=== PATIENT | female | born 1960 | race American Indian/Alaskan Native ===

== ENCOUNTER 2016-10-11 14:45 | Outpatient (CLI) | payer OTHER ==
--- NOTE | 2016-10-12 08:16 | Ultrasound Report ---
BILATERAL DIGITAL DIAGNOSTIC MAMMOGRAM with CAD and LEFT BREAST ULTRASOUND: 10/11/16 14:45:00 CLINICAL: Palpable left breast lump. COMPARISON:11/16/15 FINDINGS: The breasts are heterogeneously dense, which may obscured small masses. An oval left upper outer mass with a lobular margin measures 2.3 cm and correlates with the palpable lump. No architectural distortion or suspicious calcifications. Stable 1.4 cm right lower inner breast mass with a biopsy clip. Ultrasound of the left breast (including all four quadrants and the retroareolar area) was performed. A heterogeneous solid hypoechoic mass at 2 o'clock 13 cm from the nipple measures 2.8 x 2.2 x 1.6 cm and corresponds to the palpable mass on the mammogram. No other mass or cyst. Ultrasound of the left axilla demonstrated no suspicious lymph nodes. IMPRESSION: A highly suspicious 2.8 cm palpable left breast mass at 2 o'clock 13 cm from the nipple. BIRADS 5 - - Highly Suggestive of Malignancy RECOMMENDATION: Ultrasound guided needle core biopsy of the left breast. ACR BI-RADS MAMMOGRAPHIC CODES: 0 = Needs additional imaging evaluation; 1 = Negative; 2 = Benign; 3 = Probably benign; 4 = Suspicious; 5 = Malignant; 6 = Known biopsy-proven malignancy COMMENT: 1. Dense breast tissue, i.e., adenosis, fibrocystic changes, etc., may obscure an underlying neoplasm. 2. Approximately 10% of cancers are not detected with mammography. 3. A negative mammography report should not delay biopsy if a clinically suspicious mass is present. COMMENT: Patient follow-up letters are generated by our [employer] (FIG) application.
== END 2016-10-11 14:46 | disposition home or self-care (01) ==
LOC: SPVWC 14:45
PROVIDERS: ATTEND Family Medicine
DX: N63 Unspecified lump in breast (principal)
CPT/HCPCS: 76641; G0204; 77066

== ENCOUNTER 2016-10-24 14:02 | Outpatient (CLI) | payer OTHER ==
--- NOTE | 2016-10-24 15:11 | Mammography Report ---
LEFT DIGITAL DIAGNOSTIC MAMMOGRAM: 10/24/16 14:02:00 CLINICAL: For clip placement immediately status post ultrasound biopsy. COMPARISON:10/11/16 FINDINGS: A biopsy clip is now identified at the margin of the previously described upper outer mass. IMPRESSION: Concordant clip placement status post ultrasound biopsy. BI-RADS CATEGORY: 5 - - Highly Suggestive of Malignancy Pathology pending.
--- NOTE | 2016-10-24 15:13 | Ultrasound Report ---
ULTRASOUND GUIDED NEEDLE CORE BIOPSY LEFT BREAST WITH CLIP PLACEMENT: 10/24/16 CLINICAL: A 2.3 cm left breast mass at 2 o'clock 13 cm from the nipple. COMPARISON :10/11/16 FINDINGS: The procedure was explained to the patient and informed consent was obtained. Ultrasound demonstrated a mass at 2 o'clock 13 cm from the nipple. I marked the breast with a felt tip marker and a time out was called. The skin was prepped with Betadine and anesthetized with 1% lidocaine. Needle core biopsy was performed through a tiny dermatotomy using ultrasound guidance, 2% lidocaine with epinephrine for deep anesthesia and a 14-gauge Achieve biopsy device. 3 cores were obtained and placed in formalin. A clip was deployed within the mass. The patient tolerated the procedure well and there were no apparent complications. Hemostasis was achieved with minimal pressure and a sterile dressing was applied. A two view mammogram demonstrated satisfactory placement of the clip. She left the department in good condition and was given instructions for wound care and followup. IMPRESSION: Uncomplicated ultrasound guided needle core biopsy with clip placement left breast.
== END 2016-10-24 14:03 | disposition home or self-care (01) ==
LOC: SPVWC 14:02
PROVIDERS: ATTEND Family Medicine
DX: N63 Unspecified lump in breast (principal)
CPT/HCPCS: 19083; A4648; G0206; 88305; 88361

== ENCOUNTER 2016-12-24 12:20 | Outpatient (CLI) | payer OTHER ==
--- NOTE | 2016-12-25 14:43 | Magnetic Resonance Report ---
BILATERAL BREAST MRI WITHOUT AND WITH CONTRAST: 12/24/16 12:20:00 CLINICAL: Newly diagnosed left breast cancer. Status post left ultrasound-guided needle core breast biopsy 10/24/16 with pathologic diagnosis of invasive mammary carcinoma with mucinous features, [place] grade I/III (well-differentiated). COMPARISON:10/11/16 bilateral mammogram and left breast ultrasound.. TECHNIQUE: Axial 1.0-mm T1 without, axial high resolution 2.0-mm T2 and axial 1.0-mm dynamic Vibrant high-resolution postcontrast T1 fat saturation sequences on a 1.5 Dayanna magnet. The examination was performed with an 8 channel dedicated [place] breast coil. Post processing with CAD and subtraction was performed on an Scrip-t workstation. 20 cc of Multihance was injected without incident for the contrast portion of the exam. Consent was obtained prior to the administration of the contrast. FINDINGS: Right: Mild background parenchymal enhancement. No suspicious mass or suspicious enhancement. An oval benign mass at 3 o'clock 8.6 cm from the nipple with a mild lobular contour contains a biopsy clip and measures 16.8 x 10.2 x 9.4 mm. It demonstrates heterogeneous enhancement with mixed kinetics, 192% peak enhancement, 193% type I persistent and 0% type III washout. No suspicious right axillary or right internal mammary lymph nodes. Left: Mild background parenchymal enhancement. The known cancer is an oval irregular mass at 3 o'clock 13.6 cm from the nipple and 4.8 cm from the chest wall measuring 2.9 x 1.7 x 2.2 cm. It demonstrates heterogeneous enhancement with mixed kinetics, 222% peak enhancement and 50% type III washout. It is uniformly hyperintense on T2. No other mass or suspicious enhancement. A benign upper outer lymph node 8.1 cm from the nipple measures 7.0 mm and a benign upper lymph node at 12 o'clock 9.4 cm from the nipple measures 7 mm. No suspicious left axillary or left internal mammary lymph nodes. IMPRESSION: 1. Known 2.9 cm left breast cancer and no additional suspicious lesion of either breast. 2. No suspicious lymph nodes.3. Negative right breast. BI-RADS 6 -- Known Cancer LEFT BI-RADS --
== END 2016-12-24 12:21 | disposition home or self-care (01) ==
LOC: SPVIMAG 12:21
PROVIDERS: ATTEND Surgery
DX: C50.912 Malignant neoplasm of unspecified site of left female breast (principal); F17.200 Nicotine dependence, unspecified, uncomplicated; Z80.3 Family history of malignant neoplasm of breast
CPT/HCPCS: 0159T; A9577; C8908; 77059

== ENCOUNTER 2017-01-02 08:51 | Day surgery (SDC) | payer OTHER ==
[~2017-01-02 08:51] MED LIST: NACL 0.9% 1000 ML 1,000 ML IV SCH
[2017-01-02] MEDS ORDERED: PEPCID PO NR (09:00)
[2017-01-02] MEDS ORDERED: VERSED IV NR (09:29)
[2017-01-02] MEDS ORDERED: MORPHINE IV PRN (09:29)
--- NOTE | 2017-01-02 09:30 | Anesthesia Day of Surgery ---
Anesthesia Day of Surgery - Day of Surgery Patient Examined: Yes Patient H&P Reviewed: Yes Patient is NPO: Yes
--- NOTE | 2017-01-02 09:30 | Anesthesia Consultation ---
Anesthesia Consult and Med Hx Date of service: 01/02/17 - Airway Anesthetic Teeth Evaluation: Good, Chipped (front lower) ROM Head & Neck: Adequate Mental/Hyoid Distance: Adequate Mallampati Class: Class II Intubation Access Assessment: Probably Good - Pulmonary Exam CTA: Yes - Cardiac Exam Cardiac Exam: RRR - Pre-Operative Health Status ASA Pre-Surgery Classification: ASA2 Proposed Anesthetic Plan: General - Pulmonary Hx Smoking: Yes (1/2 PPD X 35 YRS) Hx Sleep Apnea: No (NORMAN PRE SCREEN HIGH RISK) - Cardiovascular System Hx Hypertension: No - Hematic Hx Anemia: Yes (NOT RECENT) - Other Systems Hx Cancer: Yes (left breast cancer) Hx Obesity: No
[2017-01-02] MEDS ORDERED: ZOFRAN IV PRN (10:00)
[2017-01-02] MEDS ORDERED: ANCEF/STERILE WATER 2 GM/20 ML 2 GM/20 ML SYRINGE IV NR (10:00)
[2017-01-02] MEDS ORDERED: PERCOCET 5/325 PO PRN (10:00)
[2017-01-02] MEDS ORDERED: MARCAINE 0.25% INFILTRATI ONE ×2 (10:13→10:25)
[2017-01-02] MEDS ORDERED: XYLOCAINE 1% 20 mL ONE (10:13)
[2017-01-02] MEDS ORDERED: NACL 0.9% 100 ML ONE (10:15)
[2017-01-02] MEDS ORDERED: HEPARIN 10,000 UNITS/10 ML ONE (10:15)
[2017-01-02] MEDS ORDERED: XYLOCAINE 1% 20 mL INFILTRATI ONE (10:25)
[2017-01-02] MEDS ORDERED: NACL 0.9% IR ONE (10:25)
[2017-01-02] MEDS ORDERED: NACL 0.9% IV ONE (10:25)
[2017-01-02] MEDS ORDERED: HEPARIN 10,000 UNITS/10 ML IV ONE (10:25)
[2017-01-02] MEDS ORDERED: XYLOCAINE MPF 2% ONE (10:30)
[2017-01-02] MEDS ORDERED: DIPRIVAN 10 MG/ML IV ONE (10:31)
[2017-01-02] MEDS ORDERED: SUBLIMAZE ONE (10:31)
[2017-01-02] MEDS ORDERED: ZOFRAN ONE (10:31)
[2017-01-02] MEDS ORDERED: DECADRON ONE (10:31)
[2017-01-02] MEDS ORDERED: NEO SYNEPHRINE/NS Syringe(OR USE) IV ONE (11:00)
[2017-01-02] MEDS ORDERED: DILAUDID ONE (11:05)
[2017-01-02] MEDS ORDERED: NACL 0.9% 1000 ML 1,000 ML ONE (11:19)
--- NOTE | 2017-01-02 12:00 | Short Stay Summary ---
Short Stay Documentation Date of service: 01/02/17 - History H&P: obtained from office - Allergies and Medications Current Medications: Allergies shellfish derived Allergy (Verified 12/28/16 14:34) Itching Home Medications Medication Instructions Recorded Confirmed Last Taken Type Aspirin [Adult Low Dose Aspirin EC] 81 mg PO DAILY 12/28/16 01/02/17 1 Month Ago History HYDROcodone/APAP 5-325 [Waucoma 1 each PO Q6HR PRN #30 tablet 01/02/17 Unknown Rx 5/325] Active Medications Famotidine (Pepcid) 20 mg PO PREOP NR Stop: 01/02/17 12:00 Last Admin: 01/02/17 09:32 Dose: 20 mg Sodium Chloride (Nacl 0.9% 1000 Ml) 1,000 mls @ 75 mls/hr IV DIRECT CHARLEE Last Admin: 01/02/17 09:40 Dose: 75 mls/hr Cefazolin Sodium (Ancef/Sterile Water 2 Gm/20 Ml) 2 gm in 20 mls @ 80 mls/hr IV PREOP NR PRN Reason: Protocol Stop: 01/02/17 15:00 Midazolam HCl (Versed) 2 mg IV PREOP NR Stop: 01/02/17 23:59 Last Admin: 01/02/17 09:51 Dose: 2 mg Morphine Sulfate (Morphine) 2 mg IV Q10MIN PRN PRN Reason: Pain, Moderate (4-6) Stop: 01/02/17 15:00 - Brief post op/procedure progress note Date of procedure: 01/02/17 Pre-op diagnosis: L breast cancer of the upper outer quadrant, need of central venous access Post-op diagnosis: same Procedure: Right port placement Findings: right port in good placement and confirmed under fluoroscopy Surgeon: MICHAEL LARRY Estimated blood loss: minimal Pathology: none Condition: stable - Disposition Condition at discharge: Good Disposition: DC-01 TO HOME OR SELFCARE Short Stay Discharge Plan Activity: other (no heavy lifting) Diet: regular Wound: other (keep incision clean and dry; may shower in 24 hours; no baths, pools or lakes) Follow up with: ANURADHA BOSTON MD [Primary Care Provider] - 7 Days MICHAEL LARRY MD [Staff Physician] - 7 Days Prescriptions: HYDROcodone/APAP 5-325 [Waucoma 5/325] 1 each PO Q6HR PRN #30 tablet PRN Reason: Pain
--- NOTE | 2017-01-02 12:19 | Post Anesthesia Evaluation ---
- Post Anesthesia Evaluation Patient Participated: Yes Airway Patent: Yes Stable Respiratory Function: Yes Nausea/Vomiting: No Temp > 96.8F: Yes Pain Manageable: Yes Adequeate Hydration: Yes Anesthesia Complications: No Block Receding Appropriately: Not Applicable Patient on Ventilator: No
--- NOTE | 2017-01-02 12:22 | Operative Report ---
Operative Report Operative Report: Date of surgery: 01/02/2017 Preoperative diagnosis: Left breast cancer of the upper outer quadrant in need of central venous access Postoperative diagnosis: Same Procedure: Right port basement under fluoroscopy guidance Surgeon: Martha Kimbrough M.D. Anesthesia: Gen. Findings: Right port placement in good position confirmed under fluoroscopy guidance Estimated blood loss: Minimal Complications: None Disposition: PACU in good condition Indications for operative procedure: This is a 56-year-old lady with newly diagnosed left breast cancer of the upper outer quadrant. Chemotherapy recommended and patient wished to proceed with neoadjuvant chemotherapy. Port placement needed for central venous access. Procedure in detail: The patient was taken to the operating room and was laid supine. Gen. anesthesia was administered. Neck and bilateral chest were prepped and draped in the normal sterile operative fashion. Timeout was performed. Landmarks for port placement were identified to include sternal notch and pectoral groove. Right subclavian vein was accessed with needle and syringe attached with appropriate back flow of blood. The wire was inserted through the syringe, x-ray was taken with wire in good placement. A skin incision was made using a 15 blade knife for creation of port pocket.The pocket was created using the Bovie cautery. Catheter with sheath was inserted through the wire in a seldinger-like technique. The catheter and wire were removed and the catheter was threaded through the sheath. The sheath was then peeled away. The catheter was then cut to appropriate size and confirmed under fluoroscopy guidance. Good backflow of blood was noted in the catheter. The port was then attached to the catheter and the port was then sutured into proper placement. The port was tested with good black backflow blood and flushed with heparin. The port was noted to be 2 cm distal to the atrial-caval junction. This port was sutured into place. The skin was approximated and closed using a running 4- 0 Monocryl followed by skin affix. Chest X-ray after port placement with port in good placement and no pneumothorax. The patient was awakened from anesthesia and transferred to PACU in good condition.
[2017-01-02 12:53] VITALS: BP 123/86
--- NOTE | 2017-01-04 13:48 | Fluoroscopy Report ---
Portable supine chest: A right subclavian port is present with its tip at the superior cavoatrial junction region. The right hemithorax is generally denser than the left and the possibility of a right pleural effusion is suggested. No other significant findings. No prior exams for comparison.
== END 2017-01-02 13:30 | disposition home or self-care (01) ==
LOC: OR 08:51
PROVIDERS: ATTEND Surgery
DX: C50.412 Malignant neoplasm of upper-outer quadrant of left female breast (principal); F17.210 Nicotine dependence, cigarettes, uncomplicated; Z79.01 Long term (current) use of anticoagulants
CPT/HCPCS: 36561; 77001; C1788; J0690; J1100; J1170; J1644; J2250; J2370; J2405; J2704; J3010; J7030

== ENCOUNTER 2017-05-29 08:46 | Day surgery (SDC) | payer OTHER ==
[2017-05-29] MEDS ORDERED: XYLOCAINE 1% 20 mL INFILTRATI NR (09:00)
[2017-05-29] MEDS ORDERED: LACTATED RINGERS 1,000 ML IV SCH (09:00)
[2017-05-29] MEDS ORDERED: MARCAINE 0.5% INFILTRATI NR (09:00)
[2017-05-29] MEDS ORDERED: NACL P/F VIAL (10 ML) INFILTRATI NR (09:00)
[2017-05-29] MEDS ORDERED: VERSED IV NR (09:00)
[2017-05-29] MEDS ORDERED: GARAMYCIN ONE (10:07)
[2017-05-29] MEDS ORDERED: BACITRACIN ONE (10:08)
[2017-05-29] MEDS ORDERED: NACL BACTERIOSTATIC INFILTRATI ONE (10:12)
--- NOTE | 2017-05-29 10:22 | Anesthesia Day of Surgery ---
Anesthesia Day of Surgery - Day of Surgery Patient Examined: Yes Patient H&P Reviewed: Yes Patient is NPO: Yes
[2017-05-29] MEDS ORDERED: ZOFRAN IV PRN (10:30)
[2017-05-29] MEDS ORDERED: DILAUDID IV PRN (10:30)
[2017-05-29] MEDS ORDERED: DIPRIVAN 10 MG/ML IV ONE (10:49)
[2017-05-29] MEDS ORDERED: SUBLIMAZE ONE (10:50)
[2017-05-29] MEDS ORDERED: ANCEF/STERILE WATER 2 GM/20 ML IV NR (11:00)
[2017-05-29] MEDS ORDERED: PEPCID IV NR (11:00)
[2017-05-29 11:06] LABS: Hematocrit 33.6 % (30.3-42.9); Hemoglobin 11.1 gm/dl (10.1-14.3)
[2017-05-29] MEDS ORDERED: MARCAINE 0.5% 30 ML INFILTRATI ONE (11:19)
[2017-05-29] MEDS ORDERED: LIDOCAINE 1.5%/EPI 1:200,000 INFILTRATI ONE (12:33)
[2017-05-29] MEDS ORDERED: ADRENALIN ONE (12:35)
[2017-05-29] MEDS ORDERED: XYLOCAINE 1% 20 mL INFILTRATI ONE (13:10)
[2017-05-29] MEDS ORDERED: ADRENALINE P/F IV ONE (13:10)
[2017-05-29] MEDS ORDERED: NACL 0.9% IR ONE (13:54)
--- NOTE | 2017-05-29 14:13 | Short Stay Summary ---
Short Stay Documentation Date of service: 05/29/17 - History H&P: obtained from office - Allergies and Medications Current Medications: Allergies shellfish derived Allergy (Verified 05/24/17 16:48) Itching Home Medications Medication Instructions Recorded Confirmed Last Taken Type HYDROcodone/APAP 5-325 [Erving 1 each PO Q6HR PRN #30 tablet 05/29/17 Unknown Rx 5/325] Active Medications Famotidine (Pepcid) 20 mg IV PREOP NR Stop: 05/29/17 21:00 Last Admin: 05/29/17 11:32 Dose: 20 mg Fentanyl (Sublimaze) 50 mcg IV Q5MIN PRN PRN Reason: Pain , Severe (7-10) Stop: 05/29/17 20:00 Hydromorphone HCl (Dilaudid) 0.25 mg IV Q10MIN PRN PRN Reason: Pain, Moderate (4-6) Stop: 05/29/17 20:00 Lactated Ringer's (Lactated Ringers) 1,000 mls @ 42 mls/hr IV DIRECT CHARLEE Last Admin: 05/29/17 10:40 Dose: 42 mls/hr Midazolam HCl (Versed) 2 mg IV PREOP NR Stop: 05/29/17 23:59 Last Admin: 05/29/17 11:20 Dose: 2 mg Ondansetron HCl (Zofran) 4 mg IV ONCE PRN PRN Reason: Nausea And Vomiting - Brief post op/procedure progress note Date of procedure: 05/29/17 Pre-op diagnosis: Left breast cancer of the upper outer quadrant Procedure: Left partial mastectomy with SLNB and placement of 3-Dimensional implant 2 cm x 3 cm to beryl the surgical site; and right fibroadenoma excisional biopsy of the upper inner quadrant Anesthesia: GETA Findings: Left breast cancer mass of the upper outer quadrant with radiograph specimen with clip present within mass; 1 SLN; 3D biozorb placement; right fibroadenoma of the 3:00 position Surgeon: MICHAEL LARRY Estimated blood loss: minimal Pathology: list (left breast cancer mass, 1SLN, right fibroadenoma) Specimen disposition: to lab Condition: stable - Disposition Condition at discharge: Good Disposition: - TO HOME OR SELFCARE Short Stay Discharge Plan Activity: other (no heavy lifting) Diet: regular Wound: other (keep incision clean, dry and intact; may shower in 48 hours; do not rub or scrub incision; no baths, pools or lakes) Follow up with: NAOMY CLARK MD [Primary Care Provider] - 7 Days MICHAEL LARRY MD [Staff Physician] - 7 Days Prescriptions: HYDROcodone/APAP 5-325 [Erving 5/325] 1 each PO Q6HR PRN #30 tablet PRN Reason: Pain
--- NOTE | 2017-05-29 14:47 | Operative Report ---
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 Postoperative diagnosis: Same Procedure: Left partial mastectomy of the upper outer quadrant with SLNB and placement of 3-dimensional implant (2x3 cm) to beryl surgical site; and right fibroadenoma excisional biopsy of the upper inner quadrant Surgeon: Martha Kimbrough MD Irrigator Head: SANAM Hansen Anesthesia: General Findings: Left breast clip present within radiograph specimen; 1 SLN; right fibroadenoma excisional biopsy; left partial mastectomy site 3-dimensional BioZorb placement Complications: None EBL: Minimal Disposition: Plastic surgery bilateral reduction mammoplasty with lift Indications for operative procedure: This is a 56 year old lady with Stage II left breast cancer of the upper outer quadrant. She completed neoadjuvant chemotherapy of TCH/P. Recommendations were to proceed with breast conservation. Patient also wanted to proceed with right breast fibroadenoma excisional biopsy. Plastic surgery was consulted given patient wanted to proceed with bilateral reduction mammoplasty with lift. Recommendations were also placement of BioZorb to beryl surgical cavity site given plastics procedure. Procedure in detail: Anesthesia placed bilateral pectoral muscle blocks. Patient was then taken to the operating room. Gen. anesthesia was administered. The left nipple was injected with radioisotope. Bilateral breast were prepped and draped in the normal sterile operative fashion. Known cancer was at the upper outer quadrant at the 2:00 position towards the axillary tail. Right fibroadenoma palpable at the 3:00 position. Timeout was performed. Gamma probe was inserted into the axilla. The area of hot spot was identified. Frist began with the SLNB. A left axillary incision was made with a 15 blade knife with dissection taken down to the subcutaneous tissues. The axillary fascia was opened with the Bovie cautery. The gamma probed was inserted into the axilla. 1 SLN was identified. No additional counts were present. Lymph node was sent to pathology for permanent processing. Hemostasis was noted in the left axillary cavity. Axillary cavity was appropriately irrigated and suctioned. Axillary fascia was approximated and closed using interrupted 3-0 Vicryl and the skin brought together and closed using a running 4-0 Monocryl followed by skin affix. Attention was then taken towards the left breast. Breast cancer was palpable at the 2:00 position. Lateral breast incision was made with a 15 blade knife and dissection taken down to subcutaneous tissues. First began raising of the lateral flap with dissection taken down to the pectoralis muscle, followed by raising of the medial flap, superior flap and inferior flap with all flaps taken down to the pectoralis muscle. The breast area of concern was appropriately removed posteriorly from the pectoralis muscle with the aid of the Bovie cautery. Specimen was marked and then sent to pathology and radiology ; radiograph specimen with clip and mass present. Breast cavity was irrigated and hemostasis was obtained. Breast cavity was noted to have a large defect in relationship to the breast and wound leave a significant deformity if untreated. To correct volume loss due to partial mastectomy, and also given patient was undergoing reduction mammoplasty with lift, to ensure appropriate location for radiation at lumpectomy site recommendations were to proceed with placement of BioSorb. Then proceeded with mobilization of the tissues on both sides of the lumpectomy both medial and laterally. The defect was noted to be 5 x 6 cm. Once the tissues were appropriately mobilized, the region of the surgical site was demarcated for the radiation oncologist and for future follow-up surveillance by implanting a 3-dimensional device to identify the exact area of previous tumor bed. This is particularly important in this case given area of tissue mobilization performed and further to reconfirm area of cancer. After using a sizing tool to assess the lumpectomy cavity, the 3-dimensional BioZorb implant size 2 x 3 cm was chosen to beryl the location of the tumor site within the lumpectomy cavity which had been identified prior to the extensive mobilization for reconstruction. 4 stay sutures were placed to ensure the BioSorb was in good stable position using interrupted 3-0 PDS suture. The implant was sutured in posteriorly. Approximation of tissue more anteriorly was then reconstructed to ensure a normal contour for the implant device to totally cover with natural breast parenchyma. Once that was completed, the area was inspected with hemostasis noted and a good cosmetic outcome. The existing deep tissues were then closed using interrupted 3-0 Vicryl, the subcutaneous tissues were closed using interrupted 3-0 Vicryl and the skin brought together using a running 4-0 Monocryl followed by skin affix. Right breast fibroadenoma was palpable at the [address] Whitten had started with the right reduction mammoplasty. Using the same medial incision at [facility] 3:00 position, the fibroadenoma was palpable posteriorly and was appropriately dissected free with the Bovie cautery. Specimen was sent to pathology. Dr. Whitten then proceeded with bilateral reduction mammoplasty and bilateral lift.
[2017-05-29] MEDS ORDERED: ZOFRAN ONE ×2 (15:09)
[2017-05-29] MEDS ORDERED: ZEMURON IV ONE (15:09)
--- NOTE | 2017-05-29 15:40 | Discharge Summary ---
Short Stay Discharge Plan Activity: advance as tolerated, no driving until cleared by PCP, other (no lifting greater than 10 lbs) Weight Bearing Status: Full Weight Bearing Diet: regular Wound: keep clean and dry Follow up with: NAOMY CLARK MD [Primary Care Provider] - 7 Days MICHAEL LARRY MD [Staff Physician] - 7 Days DAISY CANTOR MD [Staff Physician] - 7 Days
[2017-05-29] MEDS ORDERED: DEMEROL ONE (15:41)
--- NOTE | 2017-05-29 15:41 | Post Operative Note ---
Pre-op diagnosis: left breast cancer Post-op diagnosis: same Findings: left and right breast masses Procedure: bilateral breast reconstruction with oncoplastic techniques Surgeon: DAISY CANTOR Estimated blood loss: 50-100ml Pathology: list (right and left breast tissue) Specimen disposition: to lab Condition: stable Disposition: PACU
[2017-05-29] MEDS ORDERED: DEMEROL IV PRN (15:43)
[2017-05-29] MEDS: SUBLIMAZE IV PRN ×2 (15:56→16:22)
--- NOTE | 2017-05-29 16:05 | Mammography Report ---
Operative breast specimen: Single tissue specimen is submitted that contains a soft tissue nodule with an adjacent biopsy marker.
[2017-05-29 16:50] VITALS: BP 128/77
--- NOTE | 2017-05-29 19:15 | Operative Report ---
PREOPERATIVE DIAGNOSES: Known left breast cancer and unknown right breast mass. POSTOPERATIVE DIAGNOSES: Known left breast cancer and unknown right breast mass. PROCEDURE: 1. Bilateral breast reconstruction using oncoplastic techniques with tissue rearrangement, CPT CODE 87630-20. SURGEON: Shaquille Whitten MD CUSTOMER SPECIALIST: None. ANESTHESIA: General. OPERATIVE INDICATIONS: This is a 56-year-old female who presented to my office with a known left breast cancer. Her plan was to undergo breast conservation with lumpectomy, sentinel lymph node biopsy, and postoperative radiation. She has also had a mass in her right breast, which was potentially which the diagnosis was unknown but was potentially benign in nature. Given the fact that she had larger breast with ptosis and wanted breast conservation, best option for her was bilateral oncoplastic reduction technique in order to redistribute volume to fill in her defects and prevent any contour irregularities postoperatively. Risks and benefits of surgery were discussed with the patient. Of note, the patient is a current smoker. We discussed with her the risk of nipple necrosis, wound healing problems, and skin loss due to her smoking and she said that she did quit smoking 1 week prior to surgery and will continue to maintain that postoperatively. OPERATIVE DETAILS: After informed consent was obtained, the patient was brought to the operating room and placed supine on the operating table. Preoperative antibiotics and general anesthesia were administered. The patient was prepped and draped in usual sterile fashion. Time-out was called, verifying the patient, operation being performed, side and site of the operation. Dr. Kimbrough began her portion of the operation first and started on the left side and her portion will be dictated separately. While she performed the left-sided lumpectomy, I began on the right side with the oncoplastic reduction. Preoperative markings were made in the holding area with plan to do a superior pedicle for the nipple areolar complex in a vertical skin pattern. A 42 mm cookie cutter was used to resize the areola and then the area of planned resection was deepithelialized. We then incised the medial and lateral pillars to get down the chest wall inferiorly and developed a dermal glandular flap below the nipple areolar complex. A pocket was then created below the nipple areolar complex along the chest wall and the dermal glandular flap was sewn to the chest wall using 3-0 Vicryl sutures to add some auto-augmentation. The shadow area at the inframammary fold was then worked on. The skin was left intact, but the breast tissue and subcutaneous tissue were removed medially, laterally, and inferiorly in order to allow for a vertical skin pattern closure. Of note, she did have this mass in the lower inner quadrant. Dr. Kimbrough removed that, it appeared to be grossly fibroadenoma, but since it was so close to the skin, it did leave a residual defect. For that reason, some of the tissue that I mobilized medially rather than completely resecting that I left attached to maintain its blood supply and rotated that into the defect that she had created, sutured that in place with 3-0 Vicryl sutures. At this point, the hemostasis was achieved. The breast was irrigated and I began with closure. The breast pillars were closed using 2-0 PDS [id number] sutures and then the skin was tailor tacked to assess where needed to be resected. She did still have some redundancy in the inframammary fold with the dog ears. I decided to take that out laterally into a J-wire all incision. This additional skin was then resected and then skin was closed with 3-0 Monocryl, deep dermals were used to inset the nipple areolar complex and the deep dermal sutures of the closure and then a 3-0 Monocryl running subcuticular was used to close the skin. Dermabond was applied to the incision. I then turned my attention to the left side. Dr. Kimbrough completed her lumpectomy and sentinel node biopsy and then closed the incisions. Of note, the mass on the left side was very lateral most up in the axilla and so it was not presenting a significant contour irregularity. Also, she had placed a Bio[employer]orb radiation cage in there which was helping to maintain the contour irregularity in that location. I performed the exact same operation on the left side. We resized the areola with a 42 mm cookie cutter. We made our incisions for the mastopexy and the epithelialized all the tissue. We created medial and lateral pillars developed inferior dermal glandular flap rotated that up under the chest wall and sutured that in place with 3-0 Vicryl sutures. We then temporarily closed the breast and made our tailor tacked markings resected additional skin and then the pillars were closed using 2-0 PDS interrupted sutures. Again, that shadow area inferiorly, medially, and laterally the excess tissue there was resected flatten out the inframammary fold and I also had to bring the vertical incision laterally in a J fashion to take out the dog ear. We then inset everything with 3-0 Monocryl deep dermal sutures including nipple areolar complex and then a running subcuticular 3-0 Monocryl. Dermabond was applied. The patient had ABD pads and a breast binder applied, tolerated the procedure well, was awakened from general anesthesia, transferred to PACU in stable condition. FINDINGS: Bilateral breast masses. COMPLICATIONS: None. ESTIMATED BLOOD LOSS: Less than 50 mL JOB# [id number] SIRENA/CHELLE MARTIN
== END 2017-05-29 17:24 | disposition home or self-care (01) ==
LOC: OR 08:46
PROVIDERS: ATTEND Surgery
DX: C50.412 Malignant neoplasm of upper-outer quadrant of left female breast (principal); D24.1 Benign neoplasm of right breast; F17.210 Nicotine dependence, cigarettes, uncomplicated; Z80.3 Family history of malignant neoplasm of breast; Z79.899 Other long term (current) drug therapy; Z91.013 Allergy to seafood
CPT/HCPCS: 36415; 64450; 76098; 78800; 85014; 85018; 88305; 88307; 88333; 88342; A9541; J0171; J0690; J1580; J2175; J2250; J2405; J2704; J3010; J7120